=== PATIENT | male | born 1965 | race Caucasian/White ===

== ENCOUNTER 2024-03-16 10:15 | Outpatient (CLI) | payer OTHER, SELFPAY | END 2024-03-16 10:16 | disposition home or self-care (01) | LOC: AMB 03-19 03:30 | PROVIDERS: PCP Internal Medicine; Visit Provider Emergency Medicine | DX: R55 Syncope and collapse (principal); R42 Dizziness and giddiness | CPT/HCPCS: A0425; A0427 ==

== ENCOUNTER 2024-03-16 10:44 | Emergency (ER) | payer OTHER, SELFPAY ==
[2024-03-16 10:50] VITALS: BP 98/77; PULSE 119; RESP 18; TEMP 36.6; O2SAT 97
--- NOTE | 2024-03-16 10:55 | ED.GENADULT ---
HPI - General Adult General Chief complaint: Syncope/Fainted Stated complaint: Syncopal episode Time Seen by Provider: 03/16/24 10:46 History of Present Illness HPI narrative: 58-year-old man presenting to the emergency department with concern of lightheadedness. And recommended for further evaluation in the emergency department. Brought here by ambulance. Was not fully conscious in waiting room and blood pressure readings of 71/49 with a heart rate of 124 glucose of 93. I go to assess Mr. Jurado directly upon arrival in the emergency department. He is calm. Speaking easily breathing easily. His initial blood pressure 98/77. Apparently had been working out again today and has had a number of these episodes beginning this summer usually associated with working out where a feels his heart rate going up and he becomes more lightheaded. Says he feels ?like heat stroke?. Recalls sometimes when his vision got blurry and feeling similar usually after period of prolonged exertion. Wanted particular out in the sun on a fishing trip and dehydrated and after lots of beer he notes. This is not that. For these episodes of more rapid heart rate and feeling lightheaded he has been placed on a ZIO patch and is for 5 days into monitoring on that. He does feel like he is generally prone to feeling lightheaded with exertion historically. He notes that he does not sweat very well and so tends to get overheated easily. He also says that normally he has a low resting heart rate maybe in the 40s or 50s this has the health insurance summary that you are asking about. Did have chest pain or 1 point noting to stress tests in the last few years; apparently these were unremarkable. No chest pain at this time. Is currently feeling a little lightheaded but otherwise without chest pain or shortness of breath. He does also note a history of hypertension. Does recall then with further questioning that he does take a medication for prostate enlargement and symptoms seem to be more pronounced since he has been taking that medication probably started few weeks to months before. Related Data Home Medications ?Medication ?Instructions ?Recorded ?Confirmed amlodipine 10 mg tablet 10 mg PO DAILY 12/17/23 03/16/24 tamsulosin 0.4 mg capsule 0.4 mg PO DAILY 12/17/23 03/16/24 Previous Rx's ?Medication ?Instructions ?Recorded amlodipine 2.5 mg tablet 2.5 mg PO DAILY #30 tabs 03/16/24 Allergies Allergy/AdvReac Type Severity Reaction Status Date / Time No Known Drug Allergies Allergy Verified 12/17/23 15:56 Review of Systems Status of ROS: Reports: 6 or more systems reviewed and unremarkable except as noted in History and below [facility] Social History Smoking Status: Never smoker How often do you have a drink containing alcohol: 2-4 times a month AUDIT-C Alcohol total score: 2 Non-prescribed substance use: denies use Exam Narrative: Exam Narrative: Pleasant. NAD. Tall well-built. Speaking easily. Breathing easily. Lungs are clear. Heart in elevated rate and regular rhythm. Distant. Cranial nerves 2-12 intact. Pupils are equal and brisk. Abdomen is soft nontender. Is well-perfused peripherally. Skin is warm and dry. There is no extremity edema. Const: Vital Signs, click to edit/add: Vital Signs - 24 hr 03/16/24 10:50 03/16/24 11:00 03/16/24 11:32 Temperature 97.8 F Pulse Rate [Right Pulse Oximeter] 119 H Pulse Rate [orthos tatic lying Right Pulse Oximeter] 120 H Pulse Rate [orthos tatic sitting Righ t Pulse Oximeter] 140 H Pulse Rate [orthos tatic standing Rig ht Pulse Oximeter] Respiratory Rate 18 Blood Pressure [Ri ght Upper Arm] 98/77 Blood Pressure [or thostatic lying Ri ght Arm] 96/70 Blood Pressure [or thostatic sitting Right Arm] 59/47 L Blood Pressure [or thostatic standing Right Arm] Pulse Oximetry 97 97 Oxygen Delivery Me thod Room Air 03/16/24 11:45 Temperature Pulse Rate [Right Pulse Oximeter] Pulse Rate [orthos tatic lying Right Pulse Oximeter] 73 Pulse Rate [orthos tatic sitting Righ t Pulse Oximeter] 84 Pulse Rate [orthos tatic standing Rig ht Pulse Oximeter] 104 H Respiratory Rate Blood Pressure [Ri ght Upper Arm] Blood Pressure [or thostatic lying Ri ght Arm] 119/86 Blood Pressure [or thostatic sitting Right Arm] 100/80 Blood Pressure [or thostatic standing Right Arm] 102/83 Pulse Oximetry Oxygen Delivery Me thod Documenting provider has reviewed patient's vital signs: yes Course Vital Signs Vital signs: Initial Vital Signs Temperature 97.8 F 03/16/24 10:50 Temperature Source Temporal Artery Scan 03/16/24 10:50 Pulse Rate 119 H 03/16/24 10:50 Respiratory Rate 18 03/16/24 10:50 Blood Pressure 98/77 03/16/24 10:50 Blood Pressure Mean 84 03/16/24 10:50 Blood Pressure Position Sitting 03/16/24 10:50 Pulse Oximetry 97 03/16/24 10:50 Oxygen Delivery Method Room Air 03/16/24 10:50 Vital Signs Temperature 97.8 F 03/16/24 10:50 Pulse Rate 119 H 03/16/24 10:50 Respiratory Rate 18 03/16/24 10:50 Blood Pressure 98/77 03/16/24 10:50 Pulse Oximetry 97 03/16/24 10:50 Oxygen Delivery Method Room Air 03/16/24 10:50 Temperature 97.8 F 03/16/24 10:50 Pulse Rate 73 03/16/24 11:45 Respiratory Rate 18 03/16/24 10:50 Blood Pressure 119/86 03/16/24 11:45 Pulse Oximetry 97 03/16/24 11:00 Oxygen Delivery Method Room Air 03/16/24 10:50 Medical Decision Making MDM Narrative Medical decision making narrative: Is describing some orthostatic hypotensive symptoms. Certainly could be a tachyarrhythmia contributing. EMS strip seemed to indicate an atrial tachycardia. Might be exacerbated by medications specifically the tamsulosin or even amlodipine I suppose. Uncertain what resting blood pressure is typically though visit for cerumen impaction in the urgent care in December this year had a blood pressure 136/91 and a pulse of 73. Alternatively he is responding appropriately to low resting vagal tone but not enough. Orthostatics are pending. These are grossly positive with blood pressure dropping markedly though with corresponding pulse increase even just sitting. Is infusing 500 mL of normal saline hung by EMS. Reviewed by me initial EKG actually shows a junctional rhythm without apparent P waves. Rate of 113. Observed on color television console monitor. Seems to spontaneously convert into a sinus rhythm. EKG reviewed by me now shows sinus rhythm at a rate of 61. Did discuss all findings with Cardiology. Recommending decreasing dosing of amlodipine at this time pending results of Zio patch were monitoring is currently in progress. Laboratory evaluation is unremarkable. Blood pressure comes up over time in the emergency department to as high as 140s over 80s. Feels improved. Repeat orthostatics are normal. Perhaps some of this lower blood pressures simply related to a near syncopal/syncopal event. See patient discharge plan for further discussion Medical Records Medical records reviewed: Yes I reviewed the patient's medical records Lab Data Lab results reviewed: Yes I reviewed the patient's lab results Labs: Lab Results 03/16/24 03/16/24 03/16/24 Range/Units 10:54 11:08 11:45 Hgb 14.2 (13.5-17.5) gm/dL Sodium 138 (135-149) mmol/L Potassium 4.0 (3.6-5.1) mmol/L Chloride 109 (96-114) mmol/L Carbon Dioxide 21 (20-32) mmol/L Anion Gap 8 (7-15) mEq/L BUN 20 (7-30) mg/dL Creatinine 0.9 (0.5-1.5) mg/dL Estimated GFR 98 ml/min Glucose 106 (60-115) mg/dL Calcium 9.1 (8.4-10.6) mg/dL Troponin I < 0.01 L (0.01-0.04) ng/mL NT-Pro-B Natriuret Pep 94 pg/mL Urine Color Yellow (Yellow) Urine Appearance Clear (Clear) Urine pH 6.5 (5.0-8.5) Ur Specific [place] 1.010 (1.000-1.030) Urine Protein Negative (Negative) Urine Glucose (UA) Negative (Negative) Urine Ketones Negative (Negative) Urine Blood Negative (Negative) Urine Nitrite Negative (Negative) Urine Bilirubin Negative (Negative) Urine Urobilinogen 0.2 (0.2-1.0) Ur Leukocyte Esterase Trace A (Negative) Urine RBC 0-2 (0-2) Urine WBC 0-2 (0-5) Ur Squamous Epith Cells Few (None-Few) Urine Bacteria Few A (None) POC Troponin I 0.01 (0.01-0.04) ng/ml Discharge Plan Discharge Clinical Impression: Arrhythmia, Pre-syncope Patient Disposition: Home w/ Parent or Adult Condition: Improved Additional Instructions: Do stay well-hydrated. As discussed, take it easy over the next couple of weeks until your Zio patch is reviewed and you have Cardiology follow-up. Do go ahead and call and schedule an appointment for just after you turn in that patch. Be seen/return for another larger episode. In the meantime, decrease your amlodipine dosing to 2.5 mg and take this dose in the evening. I am sending in some 2.5 mg tablets if it is too difficult to split. Prescriptions: New amlodipine 2.5 mg tablet 2.5 mg PO DAILY Qty: 30 0RF No Action tamsulosin 0.4 mg capsule 0.4 mg PO DAILY amlodipine 10 mg tablet 10 mg PO DAILY Follow Up/Referrals: Luis Angel Underwood MD [Primary Care Provider] - Stand Alone Forms: Wickr Info Instructions
[2024-03-16 11:00] VITALS: O2SAT 97
[2024-03-16 11:17] LABS: Hemoglobin* 14.2 gm/dL (13.5-17.5)
[2024-03-16 11:23] LABS: Troponin, Point-of-Care* 0.01 ng/ml (0.01-0.04)
[2024-03-16 11:30] LABS: Chloride* 109 mmol/L (96-114); Sodium* 138 mmol/L (135-149)
[2024-03-16 11:32] VITALS: BP 59/47; BP 96/70; PULSE 120; PULSE 140
[2024-03-16 11:33] LABS: Anion Gap 8 mEq/L (7-15); Blood Urea Nitrogen* 20 mg/dL (7-30); Carbon Dioxide* 21 mmol/L (20-32); Creatinine* 0.9 mg/dL (0.5-1.5); Estimated Glomerular Filt Rate 98 ml/min; Glucose* 106 mg/dL (60-115)
[2024-03-16 11:34] LABS: Calcium* 9.1 mg/dL (8.4-10.6)
[2024-03-16 11:45] VITALS: BP 100/80; BP 102/83; BP 119/86; PULSE 104; PULSE 73; PULSE 84
[2024-03-16 11:45] LABS: NT Pro B Type NatriureticPept* 94 pg/mL; Troponin I* < 0.01 ng/mL (0.01-0.04)
[2024-03-16 11:53] LABS: Appearance Urine Clear (Clear); Bilirubin Urine Negative (Negative); Blood Urine Negative (Negative); Color Urine Yellow (Yellow); Glucose Urine Negative (Negative); Ketones Urine Negative (Negative); Leukocyte Esterase Urine Trace (Negative); Nitrite Urine Negative (Negative); Protein Urine Negative (Negative); Urobilinogen Urine 0.2 (0.2-1.0); pH Urine 6.5 (5.0-8.5)
[2024-03-16 12:13] LABS: Bacteria Urine Few; RBC Urine 0-2 (0-2); Squamous Epithelial Cell Urine Few (None-Few); WBC Urine 0-2 (0-5)
== END 2024-03-16 13:38 | disposition home or self-care (01) ==
PROVIDERS: Emergency Provider Family Medicine; PCP Internal Medicine
DX: R55 Syncope and collapse (principal); I49.9 Cardiac arrhythmia, unspecified
CPT/HCPCS: 36415; 80048; 81001; 83880; 84484; 85018; 87086; 93005; 94761; 99284

== ENCOUNTER 2024-05-14 07:50 | Day surgery (SDC) | payer OTHER, SELFPAY ==
[2024-05-14] VITALS (13 sets, daily range): BP systolic 120–156; BP diastolic 76–125; PULSE 40–53; RESP 14–16; TEMP 36.1–36.6; O2SAT 93–97; BMI 29.4
[2024-05-14] MEDS: SODIUM CHLORIDE 0.9 % (FLUSH) 10 ML SYRINGE IVF (08:08)
--- NOTE | 2024-05-14 09:12 | W.PM.H&PU ---
History & Physical Update History & Physical Update H&P Reviewed and patient assessed: No changes noted
[2024-05-14] MEDS: 0.9 % SODIUM CHLORIDE 500 ML 500 ML 100 ML IV (09:32)
[2024-05-14] MEDS: CEFAZOLIN 2 GM INJ IVP (09:42)
[2024-05-14] MEDS: BUPIVACAINE 0.25% 30 ML INJECTION (09:52)
--- NOTE | 2024-05-14 10:35 | W.ANESCHARGE ---
Anesthesia Charges Start Date/Time Anesthesia Start Date: 05/14/24 Anesthesia Start Time: 09:30 Stop Date/Time Anesthesia Stop Date: 05/14/24 Anesthesia Stop Time: 10:36
--- NOTE | 2024-05-14 10:38 | P.GSOP_ITS ---
Operative Note Date of procedure: 05/14/24 Pre-op diagnosis: Umbilical hernia Post-op diagnosis: Same Type of Procedure: Open umbilical hernia repair with placement of mesh Indications: Patient is a 58-year-old male who presented to clinic with a symptomatic umbilical hernia. Different treatment options were reviewed including observation versus surgical intervention. Please see consultation note for full discussion. Risks and benefits of operative intervention were discussed at length with the patient. Risks included but was not limited to: Bleeding, infection, risk of damage to surrounding structures, possible need for additional procedures, risk of recurrence and postoperative complications such as pneumonia, pulmonary emboli or OR. All questions and concerns were addressed with the patient agreeing to proceed. Procedure Description: After discussing the risks and benefits of the procedure, the patient signed informed consent.? The operative site was marked and the patient was brought to the operating room and placed on the operating table in supine position.? Care w as taken to pad the patient's pressure points.?? The patient was then intubated by anesthesia.?? The operative site was then prepped and draped in the usual sterile fashion.? A time-out was then performed. A curvilinear incision was made at the umbilicus. Dissection was carried down into the subcutaneous tissue using cautery. The hernia sac was encountered and carefully dissected down. The hernia sac was entered with evidence of incarcerated preperitoneal fat, which was reduced. The hernia sac was carefully taken off of the umbilical sac and circumferentially dissected free. The fascial edges were then cleared circumferentially. The hernia was 1 cm in size. Patient is very active and a weightlifter, so the decision was made to use a small piece of Ventralex ST hernia mesh. A preperitoneal pocket was created using a combination of blunt dissection and cautery. Hemostasis appeared adequate. Once the posterior fascia was clear, the mesh was placed in the preperitoneal space with care to ensure that it laid flat. This was secured into place using 2 0 Prolene interrupted sutures. The tails were then trimmed and the fascial opening was closed with a running 0 Vicryl. Local anesthetic was injected into the fascia, skin and subcutaneous tissues. The umbilicus was reapproximated to the fascia. The skin was then closed with running absorbable suture. A sterile dressing was then applied. Findings: 1 cm umbilical hernia, repaired with placement of small Ventralex ST mesh. Anesthesia: GETA Surgeon: Christina Mcclendon MD Estimated blood loss (mL): 5 Condition: stable Disposition: PACU
[2024-05-14] MEDS: fentaNYL 100 MCG/2 ML inj 50 MCG IVP (10:50)
--- NOTE | 2024-05-14 11:43 | W.ANESCHARGE ---
Anesthesia Charges Start Date/Time Anesthesia Start Date: 05/14/24 Anesthesia Start Time: 09:30 Stop Date/Time Anesthesia Stop Date: 05/14/24 Anesthesia Stop Time: 10:36
== END 2024-05-14 12:20 | disposition home or self-care (01) ==
PROVIDERS: PCP Internal Medicine; Visit Provider Surgery
PROC: (CPT 49591; principal; 2024-05-14 09:00)
DX: K42.9 Umbilical hernia without obstruction or gangrene (principal)
CPT/HCPCS: 49591; 00830; C1781; J0665; J0690; J1100; J1885; J2250; J2405; J2704; J2710; J3010; J7030

== ENCOUNTER 2024-10-26 08:15 | Outpatient (RCR) | payer OTHER, SELFPAY | END 2025-02-23 23:59 | disposition home or self-care (01) | PROVIDERS: PCP Internal Medicine; Visit Provider Physical Medicine & Rehabilitation | DX: M47.812 Spondylosis without myelopathy or radiculopathy, cervical region (principal); Z51.89 Encounter for other specified aftercare | CPT/HCPCS: 97110; 97140; 97162 ==

== ENCOUNTER 2024-10-27 10:15 | Emergency (ER) | payer OTHER, SELFPAY ==
--- OUTSIDE RECORDS SUMMARY | 2006-05-28 09:25 | XMS_ITS | Continuity of Care Document ---
Author Organization [facility] Address [address] [place] [address] Phone Care Team Providers Care Employment Legal Assistant Name Role Phone Cem Crooks MD Unavailable Unavailable Procedures Procedure Date Comprehensive Eye Exam,New Pt 6 Advance Directives Directive Yes / No Effective Date File Name No Information Encounters Encounter Description Practice Location Reason(s) For Visit Diagnoses Date Provider Providers Copied on Encounter [facility], [facility] [place], [place], [id number], tel:[phone] [facility] No Information Valeriy Priest. [address] [place], [place], [id number]. tel:[phone] [facility], [address] [place] [address], [id number], [place] tel:Specialists On [phone] [facility] eye health evaluation (chief complaint) Astigmatism, regular Valeriy Priest. [address], [place], [id number]. tel:[phone] Family History Family Member Type Diagnosis Age At Onset Problem (finding) Family history of No known significant family history Payers Payer name Insurance type Covered alliance party ID Authoriza tion(s) No Information Social History Type Description Quantity Date Captured Comments Sex Male Smoking Status No Information Chief Complaint And Reason For Visit No Information Reason For Referral Reason For Referral No Information Plan Of Treatment Date Type Action Status Goal TD Vaccine. Due on 06 due History Of Present Illness Encounter Date Complaint History Of Prese nt Illness No Information Functional Status Date Functional Assessmen t No Information Instructions Date Instruction Additional Infor mation 367.21 Myopic Astigm atism, OU s/p Lasik - Discussed S/P Refractive Surgery and Myopic Astigmatism. Reviewed treatment options with the patient. Pt states he is okay with [place] and distance when driving, but has trouble seeing signs and things far away. Options include glasses or CLs for PRN DV wear, or another enhancement. Discussed impending presbyopia and need for bifocals at that time. Pt needs lasik eval to determine corneal thickness. Discussed that pt's ability to read w/out correction would be gone after lasik unless he chose m Related to S/P Refractive Surgery S S/P Refractive Surgery, OU Rel ated to Myopic Astigmatism Assessments Type Assessment Date No Information Patient Care Teams Name Effective Dates (start - stop) Status Members No Information
--- OUTSIDE RECORDS SUMMARY | 2006-05-28 09:25 | XMS_ITS | Continuity of Care Document ---
Author Organization [facility] Address [address] [place] [address] Phone Care Team Providers Care It Senior Software Engineer Java Name Role Phone Cem Crooks MD Unavailable Unavailable Procedures Procedure Date Comprehensive Eye Exam,New Pt 6 Advance Directives Directive Yes / No Effective Date File Name No Information Encounters Encounter Description Practice Location Reason(s) For Visit Diagnoses Date Provider Providers Copied on Encounter [facility], [facility] [place], [place], [id number], tel:[phone] [facility] No Information Valeriy Priest. [address], [place], [id number]. tel:[phone] [facility], [address] [place] [address], [id number], [place] tel:[phone] [facility] eye health evaluation (chief complaint) Astigmatism, regular Valeriy Priest. [address], [place], [id number]. tel:[phone] Family History Family Member Type Diagnosis Age At Onset Problem (finding) Family history of No known significant family history Payers Payer name Insurance type Covered democrat ID Authoriza tion(s) No Information Social History [...]
[2024-10-27] VITALS (7 sets, daily range): BP systolic 125–142; BP diastolic 73–85; PULSE 35–43; RESP 12–18; TEMP 36.3; O2SAT 96–100; BMI 29.8
--- OUTSIDE RECORDS SUMMARY | 2024-10-27 10:18 | XMS_ITS | Continuity of Care Document ---
Author Organization [facility] , [facility] Address [address] [place] [id number] Care Team Providers Care Cloth Grader Supervisor Name Role Phone [facility] Primary Care Provider [facility] Referring Provider Assessment No assessment recorded. Plan of Treatment Reminders Order Date Submit Date Provider Last Modified By Organization Details Last Modified Time Details Appointments None record ed. Lab None record ed. Referral None record ed. Procedures None record ed. Surgeries None record ed. Imaging None record ed. Medication Orders None record ed. Patient TargetsNo targets recorded. Patient InstructionsNo instructions recorded. Reason for Referral None Reported. Problems Name Problem SNOMED Code Status Onset Date Resolution Date Notes Provider Name and Address Organization Details Recorded Time Prostate specific antigen above reference range 290388324 Active 2023 Mathew wylie [facility] 4 13:15:33 Hypertensiv e disorder 90936108 Active 2023 Mathew Esqueda dejan [facility] 4 13:17:24 Polyp of colon 32679528 Active 2023 Mathew Esqueda dejan [facility] 4 13:17:31 Lower urinary tract symptoms due to benign prostatic hypertrophy 4373188003745 1 Active 2023 Mathew wylie [facility] 4 16:17:48 Primary erectile dysfunction 743302129 Active 2023 Mathew Esqueda dejan [facility] 4 16:17:54 Problem Notes None recorded. Procedures Surgical History Date Name Laterality Status Provider Name and Address Organization Details Recorded Time 10/27/19 25 COMPLEX VISIT completed Aidan Newby MD [address] [place] [address],[address], [place], [address], [facility] 10/26/2024 09:09:16 10/27/19 25 Bladder Scan completed Ewapavel Mcdonald [facility] 10/26/2024 14:38:26 10/10/19 25 Blood Draw/MGMT CONSULTANT/PSA RESULTS completed Sharda Puente [facility] 10/09/2024 12:28:24 10/10/19 25 UroCuff completed [facility] 10/09/2024 12:55:21 10/10/19 25 Bladder Scan completed Laura Mendez [facility] 10/09/2024 12:48:11 12/26/19 24 COMPLEX VISIT completed Aidan Newby MD [address] [place] [address],[address], [place], [address], [facility] 12/26/2023 11:14:09 10/16/19 24 Rocephin/Ceftri axone completed Aguilar Jj [facility] 10/16/2023 14:29:38 10/16/19 24 Prostate Biopsy Procedure completed Aidan Newby MD [address] [place] [address],[address], [place], [address], [facility] 10/16/2023 13:28:36 10/16/19 24 URONAV completed Aidan Newby MD [address] [place] [address],[address], [place], [address], [facility] 10/16/2023 13:28:36 07/23/19 24 COMPLEX VISIT completed Aidan Newby MD [address] [place] [address],[address], [place], [address], [facility] 07/23/2023 08:52:33 03/19/20 23 Colonoscopy completed Mathew Baptiste [facility] 07/15/2023 13:17:55 Imaging Results None recorded. Procedure Notes None recorded. Medical Equipment None Reported. Allergies No known drug allergies Medications Name Sig Start Date Stop Date Status Note LastModified by Organization Details LastModified Time ketoconaz ole 2 % shampoo 12/25 completed HN: Patient reports no longer taking Not Available Not Available Not Available prednison e 20 mg tablet 12/25 completed Not Available Not Available Not Available amlodipin e 5 mg tablet TAKE 1 TABLET BY MOUTH EVERY DAY 10/26 completed Not Available Not Available Not Available ceftriaxo ne 1 gram solution for injection Take 1 g by injectio n route. 11/10 completed Not Available Not Available Not Available tamsulosi n 0.4 mg capsule Take 1 capsule every day by oral route. active Not Available Not Available No t Available amlodipin e 10 mg tablet 10mg 1/day active Not Available Not Available No t Available benzonata te 100 mg capsule 07/22 completed Not Available Not Available Not Available levofloxa jami 500 mg tablet Take 1 tablet every 24 hours by oral route as directed . 10/14 completed Not Available Not Available Not Available ketoconaz ole 2 % topical cream 12/25 completed HN: Patient reports no longer taking Not Available Not Available Not Available alfuzosin ER 10 mg tablet,ex tended release 24 hr Take 1 tablet every day by oral route. 2024 active Not Available Not Available Not Avai lable GaviLyte- G 236 gram-22.7 4 gram-6.74 gram-5.86 gram oral solution 07/22 completed Not Available Not Available Not Available Paxlovid 300 mg (150 mg x 2)-100 mg tablets in a dose pack 07/22 completed Not Available Not Available Not Available Vitals Date Recorded Body height Provider Name an d Address Organization Details Last Updated DateTime 10/09/2024 187.96 cm Laura Mendez [place] [facility] [place] [facility] 10/09/2024 12:47:35 Social History Question Answer Notes LastModified by Organizat ion Details LastModified Time Tobacco Smoking Status Never Smoker Not Available Health Note 07/19/2023 10:40:54 What Is Your Level Of Caffeine Consumption? Occasional [email or web address] Information not available 07/19/2023 How Much Tobacco Do You Chew? None [email or web address] Information not available 07/19/2023 What Was The Date Of Your Most Recent Tobacco Screening? 10/09/2024 Information not available 10/09/2024 Have You Ever Been Counseled For Unhealthy Alcohol Use? Yes Information not available 07/23/2023 What Is Your Relationship Status? [email or web address] Information not available 07/19/2023 Are You Sexually Active? Yes [email or web address] Information not available 07/19/2023 Has Tobacco Cessation Counseling Been Provided? No Information not available 07/23/2023 How Many Days In The Past Year Have You Consumed 5 Or More Drinks? 22 [email or web address] Information no t available 07/19/2023 Sex: Unknown Functional Status Question Answer Note LastModified by Organizat ion Details LastModified Time Do you use any illicit or recreational drugs? Yes [email or web address] Information not available 07/19/2023 Do you or have you ever used any other forms of tobacco or nicotine? No Information not available 07/23/2023 What is your level of alcohol consumption? Moderate [email or web address] Information not available 07/19/2023 Do you or have you ever used smokeless tobacco? Never used smokeless tobacco [email or web address] Information not available 07/19/2023 Do you or have you ever used e-cigarettes or vape? Never used electronic cigarettes [email or web address] Information not available 07/19/2023 Mental Status None recorded. Family History Relationship Description Onset Age of this Age Resolved Age Notes LastModified by Organization Details LastModified Time Father Family history of cardiac disorder [email or web address] Not available 2023 10:40:52 Medical History Condition Response High Blood Pressure N Kidney Stones N Depression N Lung Disease N GERD/Acid Reflux N Sexually Transmitted Infection N Diabetes N Bleeding Disorder N Cancer N High Cholesterol N Heart Disease N Immunizations Vaccine Type Date Status Note Provider Nam e and Address Organization Details Recorded Time SARS-COV-2 (COVID-19) vaccine, UNSPECIFIED 02/16/2022 completed Mathew wylie [facility] 07/23/2023 08:45:56 COVID-19, mRNA, LNP-S, PF, 30 mcg/0.3 mL dose 09/03/2020 completed Mathew wylie [facility] 07/23/2023 08:45:55 COVID-19, mRNA, LNP-S, PF, 30 mcg/0.3 mL dose 09/24/2020 completed ARMEN Shi - [facility] 07/23/2023 08:45:56 Past Encounters Encounter ID Performer Location Encounter Start Date Encounter Closed Date Diagnosis/Indication Diagnosis SNOMED-CT Code Diagnosis ICD10 Code Diagnosis Note [id number] MD Micky Cooper_Dwaine [address] [address] 10/09/2024 12:27:00 10/09/2024 12:29:08 Prostate specific antigen above reference range 296854603 R97.20 [id number] MD Micky Cooper_Dwaine [address] [address] 10/09/2024 12:08:58 10/12/2024 09:56:32 Lower urinary tract symptoms due to benign prostatic hypertrophy 6634297862 9101 N40.1 Health Concerns Section Related Observation LastModified by Organization Detai ls LastModified Time None Recorded Concern Status LastModified by Organization Details LastModified Time None Recorded Payers Encounter Date Sequence Insurance Name Policy Number Policy Johnson Covered Member ID Johnson Member ID Guarantor Name 10/09/2024 1 [facility] [id number] Jarad Jurado [id number] Jarad Jurado
--- OUTSIDE RECORDS SUMMARY | 2024-10-27 10:18 | XMS_ITS | Data Portability ---
Author Organization [facility], [facility] Address [address] [place] [address] Care Team Providers Care Sumac Tanner Name Role Phone [facility] Primary Care Provider [facility] ([place]) Referring Provider Assessment Encounter Date Assessment Date Assessment LastModified by Organization Details LastModified Time 11/13/2023 11/13/2023 58 year old male with an elevated prostate specific antigen and benign prostatic hyperplasia with lower urinary tract symptoms Not available 11/13/2023 13:11:11 12/26/2023 12/26/2023 58 year old male with an elevated prostate specific antigen and benign prostatic hyperplasia with lower urinary tract symptoms Not available 12/26/2023 11:12:58 10/26/2024 10/26/2024 59 year old male with an elevated prostate specific antigen and benign prostatic hyperplasia with lower urinary tract symptoms Not available 10/26/2024 09:10:49 Plan of Treatment Reminders Order Date Submit Date Provider Last Modified By Organization Details Last Modified Time Details Appointments None recorded. Lab urinalysis, dipstick 2024 025 [facility], [address], [place], [address], 17:12:32 urinalysis, microscopic 2024 025 [facility], [address], [address], [place], [address], 14:42:58 PSA, total, serum or plasma 2024 025 [facility], [address], [address], [place], [address], 15:00:06 Referral None recorded. Procedures None recorded. Surgeries None recorded. Imaging None recorded. Medication Orders alfuzosin ER 10 mg tablet,exte nded release 24 hr 2024 025 [facility], [address] [place] [address], [id number], 14:43:02 alfuzosin ER 10 mg tablet,exte nded release 24 hr 2023 024 [facility], [address] [place] [address], [id number], 11:15:20 Patient TargetsNo targets recorded. Patient Instructions Encounter Date Encounter Id Patient Instructions Last Modified By Organization Details Last Modified Time 11/13/2023 [id number] Elevated prostat e specific antigen: We covered his MRI findings and biopsy results in detail. We will plan to repeat this in 1 year. Benign prostatic hyperplasia with lower urinary tract symptoms: He has enough symptomatic bother at this point that he would like to start treatment for this. We discussed alpha-rosalia therapy including administration, side effects, risks, and benefits. He would like to try. We will start tamsulosin 0.4 mg daily and check in in 6 weeks to assess for his improvement. Time for visit: 10 min Not available 11/13/2023 13:11:02 12/26/2023 [id number] Elevated prostat e specific antigen: Negative biopsy and MRI. We will repeat his prostate specific antigen in 1 year. Benign prostatic hyperplasia with lower urinary tract symptoms: He has had a good response, but does have light headedness. We will switch to alfuzosin. He will return in 1 year with a Urocuff prior to his visit. Time for visit: 10 min Not available 12/26/2023 11:14:55 10/26/2024 [id number] Elevated prostat e specific antigen: His prostate specific antigen is up, but his exam is stable. With his recent negative biopsy I think the overall risk of missed malignancy is low. We will repeat his prostate specific antigen and exam in 1 year. Benign prostatic hyperplasia with lower urinary tract symptoms: His symptoms are well controlled, he is emptying well, and his peak flow rates are quite high. We will maintain his regimen. Continue alfuzosin ER 10 mg daily. Not available 10/26/2024 14:42:57 Reason for Referral None Reported. Results Created Date Observation Date Name Description Value Unit Range Abnormal Flag Note LastModifiedBy Organization Detail LastModifiedTime 10/16/19 24 10/16/2023 PROST ATE BIOPS Y left lateral base BENIGN PROSTA TIC TISSUE normal Not Available [facility] [employer] [address] [place], [address], 10/20/2023 14:07:25 10/16/19 24 10/16/2023 PROST ATE BIOPS Y left base BENIGN PROSTA TIC TISSUE normal Not Available [facility] [address] [place], [address], 10/20/2023 14:07:25 10/16/19 24 10/16/2023 PROST ATE BIOPS Y left lateral mid BENIGN PROSTA TIC TISSUE normal Not Available [facility] [employer] [address] , [place], [address], 10/20/2023 14:07:25 10/16/19 24 10/16/2023 PROST ATE BIOPS Y left mid BENIGN PROSTA TIC TISSUE normal Not Available [facility] [employer] [address], [place], [address], 10/20/2023 14:07:25 10/16/19 24 10/16/2023 PROST ATE BIOPS Y left lateral apex BENIGN PROSTA TIC TISSUE normal Not Available [facility] [address] [place], [address], 10/20/2023 14:07:25 10/16/19 24 10/16/2023 PROST ATE BIOPS Y left apex BENIGN PROSTA TIC TISSUE normal Not Available [facility] [employer] [address] [place], [address], 10/20/2023 14:07:25 10/16/19 24 10/16/2023 PROST ATE BIOPS Y right base BENIGN PROSTA TIC TISSUE normal Not Available [facility] [address], [place], [address], 10/20/2023 14:07:25 10/16/19 24 10/16/2023 PROST ATE BIOPS Y right lateral base BENIGN PROSTA TIC TISSUE normal Not Available [facility] [place] [address], [place], [address], 10/20/2023 14:07:25 10/16/19 24 10/16/2023 PROST ATE BIOPS Y right mid BENIGN PROSTA TIC TISSUE normal Not Available [facility] [place] [address], [place], [address], 10/20/2023 14:07:25 10/16/19 24 10/16/2023 PROST ATE BIOPS Y right lateral mid BENIGN PROSTA TIC TISSUE normal Not Available [facility] [place] [address], [place], [address], 10/20/2023 14:07:25 10/16/19 24 10/16/2023 PROST ATE BIOPS Y right apex BENIGN PROSTA TIC TISSUE normal Not Available [facility] [place] [address], [place], [address], 10/20/2023 14:07:25 10/16/19 24 10/16/2023 PROST ATE BIOPS Y right lateral apex BENIGN PROSTA TIC TISSUE normal Not Available [facility] [address], [place], [address], 10/20/2023 14:07:25 10/16/19 24 10/16/2023 PROST ATE BIOPS Y R pz BENIGN PROSTA TIC TISSUE normal Not Available [facility] [address], [place], [address], 10/20/2023 14:07:25 10/10/19 25 10/09/2024 PSA, TOTAL -ROCH E PSA, total 6.08 NG/mL 0.00-4 .00 high This resul t is repor james using a new metho dolog y for Total PSA. Previ ous resul ts using the old metho d are not direc tly carli rable . The expec james varia tion is small ( appro ximat emperatriz 1% diffe rence https ://pu bmed. ncbi. nlm.n .go v/346 90279 /), but pleas e consi nahid a new basel ine for the patie nt. This lab resul t is being provi ded to you and your provi nahid at the same time in compl iance with the Centu ry Cures Act. Your provi nahid may not have had time to revie w and make recom menda tions based on the resul t. Pleas e allow up to one week for provi nahid revie w. Not Available [facility] [address], [place], [address], 10/09/2024 15:00:06 Result Notes None recorded. 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 Procedures Surgical History Date Name Laterality Status Provider Name and Address Organization Details Recorded Time 10/27/19 25 COMPLEX VISIT completed Aidan Newby MD [address] [facility], [place], [address], [facility] 10/26/2024 09:09:16 10/27/19 25 Bladder Scan completed Oralia Mcdonald [facility] 10/26/2024 14:38:26 10/10/19 25 Blood Draw/LIEUTENANT BALLISTICS/PSA RESULTS completed Sharda Puente [facility] 10/09/2024 12:28:24 10/10/19 25 UroCuff completed Laura Mendez [facility] 10/09/2024 12:55:21 10/10/19 25 Bladder Scan completed Laura Mendez [facility] 10/09/2024 12:48:11 12/26/19 24 COMPLEX VISIT completed Aidan Newby MD [address] [place] [address],[address], [place], [address], [facility] 12/26/2023 11:14:09 10/16/19 24 Rocephin/Ceftri axone completed Aguilar Jj [facility] 10/16/2023 14:29:38 10/16/19 24 Prostate Biopsy Procedure completed Aidan Newby MD [address] [place] [address],[address], [place], [address], [facility] 10/16/2023 13:28:36 10/16/19 24 URONAV completed Aidan Newby MD [address] [place] [address],[address], [place], [address], [facility] 10/16/2023 13:28:36 07/23/19 24 COMPLEX VISIT completed Aidan Newby MD [address] [place] [address],[address], [place], [address], [facility] 07/23/2023 08:52:33 03/19/20 23 Colonoscopy completed Mathew Baptiste [facility] 07/15/2023 13:17:55 Imaging Results None recorded. Procedure [...] d Address Organization Details Last Updated DateTime 11/13/2023 187.96 cm Mathew Meath [facility] 12:56:42 Date Recorded Body height Provider Name an d Address Organization Details Last Updated DateTime 12/26/2023 187.96 cm Mathew Meath [facility] 10:57:32 Date Recorded Body height Provider Name an d Address Organization Details Last Updated DateTime 10/09/2024 187.96 cm Laura Mendez [facility] 10/09/2024 12:47:35 Date Recorded Body height Body mass index (BMI) Body weight Provider Name and Address Organization Details Last Updated DateTime 10/26/2024 187.96 cm 30 kg/m2 257790.61 g Lynpavel Lightfeather [facility] 10/26/2024 14:36:22 Social History Question Answer Notes LastModified by Organizat ion Details LastModified Time Tobacco Smoking Status Never Smoker Not Available Health Note 07/19/2023 10:40:54 What Is Your Level Of Caffeine Consumption? Occasional [email or web address] Information not available 07/19/2023 How Much Tobacco Do You Chew? None [email or web address] Information not available 07/19/2023 What Was The Date Of Your Most Recent Tobacco Screening? 10/09/2024 [email or web address] Information not available 10/09/2024 Have You Ever [...] available 2023 10:40:52 Medical History Condition Response Diabetes N Sexually Transmitted Infection N Bleeding Disorder N High Blood Pressure N Kidney Stones N Cancer N Depression N Lung Disease N High Cholesterol N GERD/Acid Reflux N Heart Disease N Immunizations Vaccine Type Date Status Note Provider Nam e and Address Organization Details Recorded Time SARS-COV-2 (COVID-19) vaccine, UNSPECIFIED 02/16/2022 completed Mathew Meath null, [facility] 07/23/2023 08:45:56 COVID-19, mRNA, LNP-S, PF, 30 mcg/0.3 mL dose 09/03/2020 completed Mathew Meath null, [facility] 07/23/2023 08:45:55 COVID-19, mRNA, LNP-S, PF, 30 mcg/0.3 mL dose 09/24/2020 completed Mathew Meath null, [facility] 07/23/2023 08:45:56 Past Encounters Encounter ID Performer Location Encounter Start Date Encounter Closed Date Diagnosis/Indication Diagnosis SNOMED-CT Code Diagnosis ICD10 Code Diagnosis Note [id number] Aidan Newby MD [employer] [facility] [address] [place] [address] 07/23/2023 08:43:42 07/23/2023 10:49:23 Prostate specific antigen above reference range 857098221 R97.20 Lower urin trev tract symptoms due to benign prostatic hypertrophy 5107825370 9101 N40.1 Primary er ectile dysfunction 089617033 N52.9 Screening for alcohol abuse 066109873 Z13.39 [id number] MD Kinza Cooper [address] [place] [address] 10/16/2023 13:52:48 10/16/2023 13:56:35 Prostate specific antigen above reference range 308941040 R97.20 [id number] MD Kinza Cooper [address] [place] [address] 10/16/2023 13:50:56 10/16/2023 14:59:00 Prostate specific antigen above reference range 201959195 R97.20 [id number] MD Kinza Cooper [address] [place] [address] 11/13/2023 12:54:32 11/13/2023 13:40:03 Lower urinary tract symptoms due to benign prostatic hypertrophy 4316422236 9101 N40.1 Prostate s pecific antigen above reference range 182386765 R97.20 [id number] [facility] [address] 12/26/2023 10:57:18 12/26/2023 15:00:25 Lower urinary tract symptoms due to benign prostatic hypertrophy 5939032849 9101 N40.1 Prostate s pecific antigen above reference range 103120560 R97.20 [id number] MD Micky CooperWoo [address] [address] 10/09/2024 12:27:00 10/09/2024 12:29:08 Prostate specific antigen above reference range 160736035 R97.20 [id number] [facility] [address] 10/09/2024 12:08:58 10/12/2024 09:56:32 Lower urinary tract symptoms due to benign prostatic hypertrophy 8445073906 9101 N40.1 [id number] MD Micky CooperWo[address] [address] 10/26/2024 14:27:30 10/26/2024 14:43:11 Lower urinary tract symptoms due to benign prostatic hypertrophy 8220437639 9101 N40.1 Prostate s pecific antigen above reference range 205809501 R97.20 Health Concerns Section Related Observation LastModified by Organization Detai ls LastModified Time None Recorded Concern Status LastModified by Organization Details LastModified Time None Recorded Advance Directives Directive None Recorded Payers Insurance Date Sequence Insurance Name Policy Number Policy Johnson Covered Member ID Johnson Member ID Guarantor Name 10/23/2024 1 [facility] ([facility]) [id number] Jarad Jurado [id number] Jarad Jurado Notes Date Note Type Note Provider Name and Address Organization Details Recorded Time 11/13/2023 text/html Prior to conduct ing our telephone visit, the patient was apprised of the risks, benefits and alternatives to telephone visits including but not limited to poor audio quality, interrupted visits due to technological limitations, delays in medical evaluation and treatment due to deficiencies or failures of equipment, failure of security protocols resulting in a breach of privacy of personal medical information and a lack of access to complete medical records resulting in not fully informed. It was not possible for the patient to sign the privacy regulations, HIPAA release and assignment of benefits forms. The patient was given the opportunity to ask questions about these policies and gave verbal acknowledgement and approval of these policies as well as to hold this meeting by telephone. Lastly, the patient agreed to allowing their medication history to be pulled from a national pharmacy database to facilitate and coordinate their care. This is a 58 year old male here for the ongoing management of an elevated prostate specific antigen and benign prostatic hyperplasia with lower urinary tract symptoms. He was noted to have an elevated prostate specific antigen of 4.72 ng/mL (01/08/2023)He underwent an MRI of the prostate with and without intravenous contrast on 09/05/2023 which revealed a PI-RADS 3 lesion in the right peripheral zone.He is status post Uronav prostate biopsy 10/16/2023.Pathology: benign He has been struggling with worsening obstructive symptoms in the last year.He is not currently on medical therapy.He would like to address this today. Aidan Newby MD [address] [place] [address],[address], [place], [address], [facility] 11/13/2023 13:13:31 12/26/2023 text/html Prior to conduct ing our telephone visit, the patient was apprised of the risks, benefits and alternatives to telephone visits including but not limited to poor audio quality, interrupted visits due to technological limitations, delays in medical evaluation and treatment due to deficiencies or failures of equipment, failure of security protocols resulting in a breach of privacy of personal medical information and a lack of access to complete medical records resulting in not fully informed. It was not possible for the patient to sign the privacy regulations, HIPAA release and assignment of benefits forms. The patient was given the opportunity to ask questions about these policies and gave verbal acknowledgement and approval of these policies as well as to hold this meeting by telephone. Lastly, the patient agreed to allowing their medication history to be pulled from a national pharmacy database to facilitate and coordinate their care. This is a 58 year old male here for the ongoing management of an elevated prostate specific antigen and benign prostatic hyperplasia with lower urinary tract symptoms. He was noted to have an elevated prostate specific antigen of 4.72 ng/mL (01/08/2023)He underwent an MRI of the prostate with and without intravenous contrast on 09/05/2023 which revealed a PI-RADS 3 lesion in the right peripheral zone.He is status post Uronav prostate biopsy 10/16/2023.Pathology: benign International Prostate Symptom Score: 9At our last visit he was started on tamsulosin 0.4 mg daily.He has had a good response but does have light headedness. Aidan Newby MD [address] [place] [address],[address], [address], [facility] 12/26/2023 11:15:30 10/26/2024 text/html This is a 59 yea r old male here for the ongoing management of an elevated prostate specific antigen and benign prostatic hyperplasia with lower urinary tract symptoms. He was noted to have an elevated prostate specific antigen of 4.72 ng/mL (01/08/2023)He underwent an MRI of the prostate with and without intravenous contrast on 09/05/2023 which revealed a PI-RADS 3 lesion in the right peripheral zone.He is status post Uronav prostate biopsy 10/16/2023.Pathology: benignHis most recent prostate specific antigen was 6.08 ng/mL (10/09/2024). International Prostate Symptom Score: 10He currently manages his symptoms with alfuzosin ER 10 mg daily.He underwent a Urocuff study on 10/09/2024 which showed a peak flow rate of 36 mL/sec.He denies dysuria or gross hematuria. iAdan Newby MD [address] [place] [address],[address], [place], [address], [facility] 10/26/2024 14:43:06
--- OUTSIDE RECORDS SUMMARY | 2024-10-27 10:18 | XMS_ITS | Continuity of Care Document ---
Author Organization [facility] Address [address] [address] Care Team Providers Care Addiction Therapist Name Role Phone [facility] Primary Care Provider [facility] ([place]) Referring Provider Assessment Encounter Date Assessment Date Assessment LastModified by Organization Details LastModified Time 10/26/2024 10/26/2024 59 year old male with an elevated prostate specific antigen and benign prostatic hyperplasia with lower urinary tract symptoms [facility] Not available 10/26/2024 09:10:49 Plan of Treatment Reminders Order Date Submit Date Provider Last Modified By Organization Details Last Modified Time Details Appointments None recorded. Lab urinalysis, dipstick 2024 025 [facility], [address] [facility], [address], [place], [address], 5 17:12:32 urinalysis, microscopic 2024 025 [facility], [address] [facility], [address], [place], [address], 5 14:42:58 Referral None recorded. Procedures None recorded. Surgeries None recorded. Imaging None recorded. Medication Orders alfuzosin ER 10 mg tablet,exte nded release 24 hr 2024 025 [facility], [address] [place], [address], 5 14:43:02 Patient TargetsNo targets recorded. Patient Instructions Encounter Date Encounter Id Patient Instructions Last Modified By Organization Details Last Modified Time 10/26/2024 [id number] Elevated prostat e specific antigen: His prostate [...] 10/26/2024 14:42:57 Reason for Referral None Reported. Problems Name Problem SNOMED Code Status Onset Date Resolution Date Notes Provider Name and Address Organization Details Recorded Time Prostate specific antigen above reference range 052516484 Active 2023 Mathew wylie [facility] 4 13:15:33 Hypertensiv e disorder 99430526 Active 2023 Mathewrex Esqueda dejan [facility] 4 13:17:24 Polyp of colon 59603688 Active 2023 Mathew Esqueda dejan [facility] 4 13:17:31 Lower urinary tract symptoms due to benign prostatic hypertrophy 5152994390863 1 Active 2023 Mathew Esqueda dejan, [facility] 4 16:17:48 Primary erectile dysfunction 792408555 Active 2023 Mathew Esqueda dejan [facility] 4 16:17:54 Problem Notes None recorded. Procedures Surgical History Date Name Laterality Status Provider Name and Address Organization Details Recorded Time 10/27/19 25 COMPLEX VISIT completed Aidan Newby MD [address] [facility],[address], [place], [address], [facility] 10/26/2024 09:09:16 10/27/19 25 Bladder Scan completed Oralia Mcdonald [facility] 10/26/2024 14:38:26 10/10/19 25 Blood Draw/TALENT ACQUISITION LEAD/PSA RESULTS completed Sharda Puente [facility] 10/09/2024 12:28:24 10/10/19 25 UroCuff completed Laura Mendez [facility] 10/09/2024 12:55:21 10/10/19 25 Bladder Scan completed Laura Mendez [facility] 10/09/2024 12:48:11 12/26/19 24 COMPLEX VISIT completed Aidan Newby MD [address] [place] [address],[address], [place], [address], [facility] 12/26/2023 11:14:09 10/16/19 24 Rocephin/Ceftri axone completed Aguilar Анна [facility] 10/16/2023 14:29:38 10/16/19 24 Prostate Biopsy Procedure completed Aidan Newby MD [address] [place] [address],[address], [place], [address], [facility] 10/16/2023 13:28:36 10/16/19 24 URONAV completed Aidan Newby MD [address] [place] [address],[address], [place], [address], [facility] 10/16/2023 13:28:36 07/23/19 24 COMPLEX VISIT completed Aidan Newby MD [address] [place] [address],[address], [place], [address], [facility] 07/23/2023 08:52:33 03/19/20 23 Colonoscopy completed Mathew Baptiste [facility] 07/15/2023 13:17:55 Imaging Results None recorded. [...] Not Available Vitals Date Recorded Body height Body mass index (BMI) Body weight Provider Name and Address Organization Details Last Updated DateTime 10/26/2024 187.96 cm 30 kg/m2 881761.61 g Oralia Lightfeather [facility] 10/26/2024 14:36:22 Social History Question Answer Notes LastModified by Organizat ion Details LastModified Time Tobacco Smoking Status Never Smoker Not Available Health Note 07/19/2023 10:40:54 What Is Your Level Of Caffeine Consumption? Occasional [email or web address] Information not available 07/19/2023 How Much Tobacco Do You Chew? None [email or web address] Information not available 07/19/2023 What Was The Date Of Your Most Recent Tobacco Screening? 10/09/2024 [email or web address] Information not available 10/09/2024 Have You Ever [...] use any illicit or recreational drugs? Yes [email or web address] Information not available 07/19/2023 Do you or [...] N Lung Disease N GERD/Acid Reflux N Diabetes N Sexually Transmitted Infection N Bleeding Disorder N Cancer N High Cholesterol N Heart Disease N Immunizations Vaccine Type Date Status Note Provider Nam e and Address Organization Details Recorded Time SARS-COV-2 (COVID-19) vaccine, UNSPECIFIED 02/16/2022 completed Mathew wylie [facility] 07/23/2023 08:45:56 COVID-19, mRNA, LNP-S, PF, 30 mcg/0.3 mL dose 09/03/2020 completed Mathew wylie [facility] 07/23/2023 08:45:55 COVID-19, mRNA, LNP-S, PF, 30 mcg/0.3 mL dose 09/24/2020 completed Mathew wylie [facility] 07/23/2023 08:45:56 Past Encounters Encounter ID Performer Location Encounter Start Date Encounter Closed Date Diagnosis/Indication Diagnosis SNOMED-CT Code Diagnosis ICD10 Code Diagnosis Note [id number] Aidan Newby MD [facility] [address] [place] [address] 10/09/2024 12:27:00 10/09/2024 12:29:08 Prostate specific antigen above reference range 445200153 R97.20 [id number] MD Tara Cooperro_[facility] [address] [place] [address],[address] [place] [address] 10/09/2024 12:08:58 10/12/2024 09:56:32 Lower urinary tract symptoms due to benign prostatic hypertrophy 4709753502 9101 N40.1 [id number] MD [facility]icky [facility] [address] [place] [address],[address] [place] [address] 10/26/2024 14:27:30 10/26/2024 14:43:11 Lower urinary tract symptoms due to benign prostatic hypertrophy 2499694639 9101 N40.1 Prostate s pecific antigen above reference range 384128585 R97.20 Health Concerns Section Related Observation LastModified by Organization Detai ls LastModified Time None Recorded Concern Status LastModified by Organization Details LastModified Time None Recorded Payers Encounter Date Sequence Insurance Name Policy Number Policy Johnson Covered Member ID Johnson Member ID Guarantor Name 10/26/2024 1 [facility] ([facility]) [id number] Jarad Jurado [id number] Jarad Jurado Notes Date Note Type Note Provider Name and Address Organization Details Recorded Time 10/26/2024 text/html This is a 59 yea [...] zone.He is status post Uronav prostate biopsy 10/16/2023.Pathology : benignHis most recent prostate specific antigen was 6.08 ng/mL (10/09/2024). International Prostate Symptom Score: 10He currently manages his symptoms with alfuzosin ER 10 mg daily.He underwent a Urocuff study on 10/09/2024 which showed a peak flow rate of 36 mL/sec.He denies dysuria or gross hematuria. Aidan Newby MD [address] [facility],[address], [place], [address], [facility] 10/26/2024 14:43:06
--- OUTSIDE RECORDS SUMMARY | 2024-10-27 10:18 | XMS_ITS | Data Portability ---
Author Organization [facility], [facility] Address [address] [facility] [address] [place] [address] Care Team Providers Care Manager Skilled Name Role Phone [facility] ([place] Primary Care Provider [facility] ([place]) Referring Provider [phone] Assessment Encounter Date Assessment Date Assessment LastModified [...] recorded. Lab urinalysis, dipstick 2024 025 [facility], [address], [address], [place], [address], 17:12:32 urinalysis, microscopic 2024 025 [facility], [address], [address], [place], [address], 14:42:58 PSA, total, serum or plasma 2024 025 [facility], [address], [address], [place], [address], 15:00:06 Referral None recorded. Procedures None recorded. Surgeries None recorded. Imaging None recorded. Medication Orders alfuzosin ER 10 mg tablet,exte nded release 24 hr 2024 025 [facility] [address], [address] [place] [address], [address], 14:43:02 alfuzosin ER 10 mg tablet,exte nded release 24 hr 2023 024 [facility], [address] [place] [address], [address], 11:15:20 Patient TargetsNo targets recorded. Patient Instructions Encounter Date Encounter Id Patient Instructions Last Modified By Organization Details Last Modified Time 11/13/2023 [id number] Elevated prostat e specific antigen: We covered [...] 10 min Not available 11/13/2023 13:11:02 12/26/2023 [id number] Elevated prostat e specific antigen: Negative biopsy [...] 10 min Not available 12/26/2023 11:14:55 10/26/2024 [id number] Elevated prostat e specific antigen: His prostate [...] PROSTA TIC TISSUE normal Not Available [facility] [address] , [place], [address], 10/20/2023 14:07:25 10/16/19 24 10/16/2023 PROST ATE BIOPS Y left base BENIGN PROSTA TIC TISSUE normal Not Available [facility] [address] , [place], [address], 10/20/2023 14:07:25 10/16/19 24 10/16/2023 PROST ATE BIOPS Y left lateral mid BENIGN PROSTA TIC TISSUE normal Not Available [facility] [address] , [place], [address], 10/20/2023 14:07:25 10/16/19 24 10/16/2023 PROST ATE BIOPS Y left mid BENIGN PROSTA TIC TISSUE normal Not Available Ddx [facility] [employer] [address], [place], [address], 10/20/2023 14:07:25 10/16/19 24 10/16/2023 PROST ATE BIOPS Y left lateral apex BENIGN PROSTA TIC TISSUE normal Not Available [facility] [address] [place], [address], 10/20/2023 14:07:25 10/16/19 24 10/16/2023 PROST ATE BIOPS Y left apex BENIGN PROSTA TIC TISSUE normal Not Available [facility] [employer] [address] , [place], [address], 10/20/2023 14:07:25 10/16/19 24 10/16/2023 PROST ATE BIOPS Y right base BENIGN PROSTA TIC TISSUE normal Not Available Ddx [facility] [address], [place], [address], 10/20/2023 14:07:25 10/16/19 24 10/16/2023 PROST ATE BIOPS Y right lateral base BENIGN PROSTA TIC TISSUE normal Not Available Ddx [place] [address], [place], [address], 10/20/2023 14:07:25 10/16/19 24 10/16/2023 PROST ATE BIOPS Y right mid BENIGN PROSTA TIC TISSUE normal Not Available [facility] [place] [address], [place], [address], 10/20/2023 14:07:25 10/16/19 24 10/16/2023 PROST ATE BIOPS Y right lateral mid BENIGN PROSTA TIC TISSUE normal Not Available [facility] [place] [address], [place], [address], 10/20/2023 14:07:25 10/16/19 24 10/16/2023 PROST ATE BIOPS Y right apex BENIGN PROSTA TIC TISSUE normal Not Available [facility] [place] [address], [place], [address], 10/20/2023 14:07:25 10/16/19 24 10/16/2023 PROST ATE BIOPS Y right lateral apex BENIGN PROSTA TIC TISSUE normal Not Available [facility] [address], [place], [address], 10/20/2023 14:07:25 10/16/19 24 10/16/2023 PROST ATE BIOPS Y R pz BENIGN PROSTA TIC TISSUE normal Not Available [facility] [address], [place], [address], 10/20/2023 14:07:25 10/10/19 25 10/09/2024 PSA, TOTAL -ROCH E PSA, total 6.08 NG/mL 0.00-4 .00 high This resul t is repor james using a new metho dolog y for Total PSA. Previ ous resul ts using the old metho d are not direc tly carli rable . The expec jmaes varia tion is small ( appro ximat emperatriz 1% diffe rence https ://pu bmed. ncbi. nlm.n .go v/346 82225 /), but pleas e consi nahid a [...] for provi nahid revie w. Not Available [facility] [address] [facility] [address], [place], [address], 10/09/2024 15:00:06 Result Notes None recorded. 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 Procedures Surgical History Date Name Laterality Status Provider Name and Address Organization Details Recorded Time 10/27/19 25 COMPLEX VISIT completed Aidan Newby MD [address], [place], [address], [facility] 10/26/2024 09:09:16 10/27/19 25 Bladder Scan completed Oralia Mcdonald [facility] 10/26/2024 14:38:26 10/10/19 25 Blood Draw/PUMP ERECTOR/PSA RESULTS completed Sharda Puente [facility] 10/09/2024 12:28:24 10/10/19 25 UroCuff completed Laura Mendez [facility] 10/09/2024 12:55:21 10/10/19 25 Bladder Scan completed Laura Mendez [facility] 10/09/2024 12:48:11 12/26/19 24 COMPLEX VISIT completed Aidan Newby MD [address] [place] [address],[address], [address], [facility] 12/26/2023 11:14:09 10/16/19 24 Rocephin/Ceftri axone completed Aguilar Jj [facility] 10/16/2023 14:29:38 10/16/19 24 Prostate Biopsy Procedure completed Aidan Newby MD [address] [place] [address],[address], [place], [address], [facility] 10/16/2023 13:28:36 10/16/19 24 URONAV completed Aidan Newby MD [address] [place] [address],[address], [place], [address], [facility] 10/16/2023 13:28:36 07/23/19 24 COMPLEX VISIT completed Aidan Newby MD [address] [place] [address],[address], [address], [facility] 07/23/2023 08:52:33 03/19/20 23 Colonoscopy completed Mathew Baptiste [facility] 07/15/2023 13:17:55 Imaging Results None recorded. [...] Updated DateTime 11/13/2023 187.96 cm Mathew Meath [facility] 12:56:42 Date Recorded Body height Provider Name an d Address Organization Details Last Updated DateTime 12/26/2023 187.96 cm Mathew Meath [facility] 10:57:32 Date Recorded Body height Provider Name an d Address Organization Details Last Updated DateTime 10/09/2024 187.96 cm Laura Mendez [facility] 10/09/2024 12:47:35 Date Recorded Body height Body mass index (BMI) Body weight Provider Name and Address Organization Details Last Updated DateTime 10/26/2024 187.96 cm 30 kg/m2 521367.61 g Lynpavel Lightfeather [facility] 10/26/2024 14:36:22 Social History Question Answer Notes LastModified by Organizat ion Details LastModified Time Tobacco Smoking Status Never Smoker Not Available Health Note 07/19/2023 10:40:54 What Is Your Level Of Caffeine Consumption? Occasional [email or web address] Information not available 07/19/2023 How Much Tobacco Do You Chew? None [email or web address] Information not available 07/19/2023 What Was The Date Of Your Most Recent Tobacco Screening? 10/09/2024 [email or web address] Information not available 10/09/2024 Have You Ever [...] vaccine, UNSPECIFIED 02/16/2022 completed Mathew Meath null, [facility] 07/23/2023 08:45:56 COVID-19, mRNA, LNP-S, PF, 30 mcg/0.3 mL dose 09/03/2020 completed Mathew Meath null, [facility] 07/23/2023 08:45:55 COVID-19, mRNA, LNP-S, PF, 30 mcg/0.3 mL dose 09/24/2020 completed Mathew Meath null, [facility] 07/23/2023 08:45:56 Past Encounters Encounter ID Performer Location Encounter Start Date Encounter Closed Date Diagnosis/Indication Diagnosis SNOMED-CT Code Diagnosis ICD10 Code Diagnosis Note [id number] Aidan Newby MD [facility] [address] [place] [address] 07/23/2023 08:43:42 07/23/2023 10:49:23 Prostate specific antigen above reference range 554370824 R97.20 Lower urin trev tract symptoms due to benign prostatic hypertrophy 4323827838 9101 N40.1 Primary er ectile dysfunction 941009904 N52.9 Screening for alcohol abuse 314672527 Z13.39 [id number] MD Kinza Cooper [address] [place] [address] 10/16/2023 13:52:48 10/16/2023 13:56:35 Prostate specific antigen above reference range 737705493 R97.20 [id number] MD Kinza Cooper [address] [place] [address] 10/16/2023 13:50:56 10/16/2023 14:59:00 Prostate specific antigen above reference range 316511472 R97.20 [id number] MD Kinza Cooper [address] [place] [address] 11/13/2023 12:54:32 11/13/2023 13:40:03 Lower urinary tract symptoms due to benign prostatic hypertrophy 1332594742 9101 N40.1 Prostate s pecific antigen above reference range 071274794 R97.20 [id number] [facility] [address] 12/26/2023 10:57:18 12/26/2023 15:00:25 Lower urinary tract symptoms due to benign prostatic hypertrophy 1233726776 9101 N40.1 Prostate s pecific antigen above reference range 567196919 R97.20 [id number] MD Micky CooperWoo [address] [address] 10/09/2024 12:27:00 10/09/2024 12:29:08 Prostate specific antigen above reference range 008634152 R97.20 [id number] [facility] [address] 10/09/2024 12:08:58 10/12/2024 09:56:32 Lower urinary tract symptoms due to benign prostatic hypertrophy 6936551000 9101 N40.1 [id number] MD Micky CooperWo[address] [address] 10/26/2024 14:27:30 10/26/2024 14:43:11 Lower urinary tract symptoms due to benign prostatic hypertrophy 9050350639 9101 N40.1 Prostate s pecific antigen above reference range 341529614 R97.20 Health Concerns Section Related Observation LastModified by Organization Detai ls LastModified Time None Recorded Concern Status LastModified by Organization Details LastModified Time None Recorded Advance Directives Directive None Recorded Payers Insurance Date Sequence Insurance Name Policy Number Policy Johnson Covered Member ID Johnson Member ID Guarantor Name 10/23/2024 1 [facility] ([facility]) [id number] Jarad Jurado [id number] Jarad Jurado Notes Date Note Type Note [...] to address this today. Aidan Newby MD [address] [place] [address],[address], [address], [facility] 11/13/2023 13:13:31 12/26/2023 text/html Prior to [...] does have light headedness. Aidan Newby MD [address] [place] [address],[address], [address], [facility] 12/26/2023 11:15:30 10/26/2024 text/html This is [...] dysuria or gross hematuria. Aidan Newby MD [address] [place] [address],[address], [place], [address], [facility] 10/26/2024 14:43:06
--- OUTSIDE RECORDS SUMMARY | 2024-10-27 10:18 | XMS_ITS | Clinical Summary ---
Author Organization [facility] Address [address] [place] [address] Care Team Providers Care Government Sales Manager Name Role Phone Keshav Ryder Primary Care Provider [phone] Allergies No known active allergies Medications alfuzosin (UROXATRAL) 10 mg Sustained-Relea se tablet Take 10 mg by mouth once daily with a meal. Active medication order composerIndicat ions:YENNIFER (obstructive sleep apnea) 04/02/2024 AHI-9.6; diagnosis obstructive sleep apnea MRD #1 1 unit 4 Active metoprolol succinate (TOPROL XL) 50 mg sustained-relea se tabletIndicatio ns:PAF (paroxysmal atrial fibrillation) (HC) Take 1 Tablet (50 mg) by mouth once daily. 31 Tablet 11 4 Active amLODIPine (NORVASC) 10 mg tabletIndicatio ns:HTN (hypertension) Take 1 Tablet (10 mg) by mouth once daily. Please call [phone] 2 months in advance to schedule an office visit due in Apr 2025 with imaging 90 Tablet 2 5 Active Active Problems Problem Noted Date Diagnosed Date Spondylosis of cervical spine 05/11/2024 Lower urinary tract symptoms due to benign prostatic hyperplasia 10/04/2023 Primary erectile dysfunction 10/04/2023 High prostate specific antigen (PSA) 07/14/2023 Polyp of colon 03/22/2023 Overview (03/22/2023): Colonoscopy 03/2023 TA, repeat in 5 years Hypertensive disorder 03/12/2022 Encounters Date Type Department Care Team Description 10/09/2024 Orders Only [facility] Scanner 1 scan: (1-Ord) [facility] UR[facility] , 10/09/2024 10/09/2024 Orders Only [facility] Scanner 1 scan: (1-Ord) [facility], 10/09/2024 08/28/2024 3:30 PM CDT Ancillary Procedure [facility] [address] [place] [address] 08/27/2024 Travel 08/25/2024 Transcribe Orders Customer Experience [facility] [phone] James Ace MD 08/06/2024 Telephone [facility] [address] [place] [address] Silvino Aranda MD Results 08/03/2024 7:15 AM BOAT DOCK OPERATOR Ancillary Procedure [facility] [address] [place] [address] 08/03/2024 Travel from Last 3 Months Immunizations Immunization Administration Dates Next Due COVID-19 vaccine ([employer] 30mcg/0.3mL) ADRIÁN Coleman 02/16/2022 Family History Medical History Relation Name Comments Heart attack Father 60s Relation Name Status Comments Father Social History Tobacco Use Types Packs/Day Years Used Date Smoking Tobacco: Never Smokeless Tobacco: Never Tobacco Cessation:Counseling Given: Yes Alcohol Use Standard Drinks/Week Comments Yes 0 (1 standard drink = 0.6 oz pure alcohol) wine OR beer, no more than 2 per day PHQ-2 Answer Date Recorded PHQ-2 TOTAL SCORE 2 02/20/2024 Social Connections Answer Date Recorded Do you often feel lonely or isolated from those around you? 0 02/20/2024 Alcohol Use Answer Date Recorded How often do you have a drink containing alcohol ? 4 12/15/2021 How many drinks containing a lcohol do you have on a typical day when you are drinking? 0 12/15/2021 How often do you have five or more drinks on one occasion? 0 12/15/2021 Financial Resource Strain Answer Date R ecorded Difficulty of Paying Living Expenses 3 02/20/2024 Difficulty of Paying Living Expenses Not on file 02/20/2024 Food Insecurity Answer Date Recorded Do you worry your food will run out before you are able to buy more? 1 02/20/2024 Transportation Needs Answer Date Record ed Does lack of transportation keep you from medica l appointments? 1 02/20/2024 Does lack of transportation keep you from work, meetings or getting things that you need? 1 02/20/2024 Housing Stability Answer Date Recorded What is your housing situation today? 1 02/20/2024 Utilities Answer Date Recorded Do you have trouble paying f or utilities (for example, heat, electricity, water, phone)? 1 02/20/2024 Sex and Gender Information Value Date Recorded Sex Assigned at Not on file Legal Sex Male 2:07 PM CDT Gender Identity Not on file Sexual Orientation Not on file Obstetrics History Last Filed Vital Signs Vital Sign Reading Time Taken Comments Blood Pressure 164/97 07/23/2024 1:50 PM BOAT DOCK OPERATOR did not take rx's last night Pulse 58 07/23/2024 1:50 PM BOAT DOCK OPERATOR Temperature 36.4 C (97.6 F) 07/23/2024 1:50 PM BOAT DOCK OPERATOR Respiratory Rate 14 03/19/2023 3:47 PM CDT Oxygen Saturation 97% 07/23/2024 1:5 0 PM BOAT DOCK OPERATOR Inhaled Oxygen Concentration - - Weight 108.5 kg (239 lb 4.8 oz) 07/23/2024 1:50 PM BOAT DOCK OPERATOR Height 186.4 cm (6' 1.39) 04/27/2024 8 :38 AM BOAT DOCK OPERATOR Body Mass Index 31.24 04/27/2024 8:38 AM BOAT DOCK OPERATOR Plan of Treatment Health Maintenance Due Date Last Done Comments Tdap 08/09/1975 Pneumococcal series for age 50+ (1 of 2 - PCV) 08/09/1983 Tetanus booster 1984 Zoster (shingles) series for age 50+ (1 of 2) 2014 COVID-19 vaccine series ( season) 2024 02/16/2022, 09/24/2020, 09/03/2020 RSV vaccine for adults or (1 - Risk 60-74 years 1-dose series) 2024 Influenza Vaccine (Season Ended) 2025 Depression screening for age 12+ 02/19/2025 02/20/20 24 BMI (ht and wt on same day) for age 18+ 04/27/2025 04/27/2024, 03/12/2024, 02/20/2024, Additional history exists Colonoscopy through age 75 03/19/202803/19, 03/19/2023, 03/19/2023, Additional history exists Lipids for age 45-75 02/19/2029 02/20/2024, 01/09/20 23 HIV for age 15-65 Completed 01/08/2023 Hepatitis C screening for ag e 18-79 Completed 01/08/2023 Procedures Procedure Name Priority Date/Time Associated Diagnosis Comments SCAN-OPERATIVE/PROC EDURE REPORT 10/09/2024 12:00 AM CDT SCAN-DIAGNOSTIC REPORT 10/09/2024 12:[address] SPINE CERVICAL WO FLACO 08/28/2024 3:39 PM CDT Cervical radiculitis MR SPINE CERVICAL WO Routine 08/03/2024 10:10 AM BOAT DOCK OPERATOR Spondylosis of cervical spine Neck ankylosis Facet arthritis of cervical region LIPID PANEL W REFLEX MEASURED LDL Routine 02/20/2024 8:35 AM CDT Annual physical exam COLONOSCOPY SCREENING Routine 03/19/2023 2:56 PM CDT Personal history of colonic polyps LC HIV-1/O/2, 4TH GENERATION Routine 01/08/2023 11:00 AM CDT Screening for HIV (human immunodeficiency virus) LC HCV ANTIBODY RFX TO QUANT PCR Routine 01/08/2023 11:00 AM CDT Need for hepatitis C screening test from Last 3 Months or Most Recently Relevant to Health Maintenance Results * SCAN-OPERATIVE/PROCEDURE REPORT (10/09/2024 12:00 AM CDT) us Scanner OTHER Final Result * SCAN-DIAGNOSTIC REPORT (10/09/2024 12:00 AM CDT) us Scanner OTHER Final Result * CT SPINE CERVICAL WO (08/28/2024 3:39 PM CDT) Anatomical Region Laterality Modality CERVICAL SPINE, NECK, Spine Comp uted Tomography 08/28/2024 4:30 PM CDT Narrative 08/28/2024 4:30 PM CDT For Patients: As a result of the Cures Act, medical imaging exams and procedure reports are released immediately into your electronic medical record. You may view this report before your referring provider. If you have questions, please contact your health care provider. Indication: Cervical radiculitis. Technique: Noncontrast CT of the cervical spine with multiplanar reconstruction utilizing bone and soft tissue algorithms. Comparison: Correlated with MR cervical spine dated 08/03/2024. Findings: No acute fracture or traumatic subluxation. No lytic or blastic lesion. Bulky anterior osteophytes from C3-C7 with C4-C6 interbody ankylosis. Normal cervical vertebral alignment and stature. Multilevel interbody height loss with vacuum disc phenomenon at C6-C7. C2-C3: Moderate right facet joint arthrosis. No significant spinal canal or neural foraminal stenosis. C3-C4: No significant spinal canal stenosis. Mild-moderate right and mild left neural foraminal narrowing associated with uncovertebral and facet joint arthrosis. C4-C5: Posterior endplate osteophytic ridging. Mild facet joint and uncovertebral hypertrophy. No significant spinal canal or neural foraminal stenosis. C5-C6: Posterior endplate osteophytic ridging. Mild uncovertebral and facet joint arthrosis. No significant spinal canal or neural foraminal stenosis. C6-C7: Posterior endplate osteophytic ridging and shallow symmetric disc bulge. Mild uncovertebral arthrosis. No significant spinal canal stenosis or right neural foraminal narrowing. Mild-moderate left neural foraminal narrowing. C7-T1: Mild facet joint arthrosis. No significant spinal canal or neural foraminal stenosis. Impression: 1. No acute fracture or traumatic subluxation. 2. Diffuse idiopathic skeletal hyperostosis with C4-C6 interbody ankylosis. 3. Mild-moderate neural foraminal narrowing on the right at C3-C4 and left at C6-C7. Please note that all CT scans at this facility use dose modulation, iterative reconstruction, and/or weight-based dosing when appropriate to reduce radiation dose to as low as reasonably achievable. Dictated by Michael James MD @ 08/28/2024 4:30:41 PM (Electronically Signed) Procedure Note Kang James MD - 08/28/2024 For Patients: As a result of the Cures Act, medical imagingexams and procedure reports are released immediately into your electronicmedical record. You may view this report before your referring provider.If you have questions, please contact your health care provider. Indication: Cervical radiculitis. Technique: Noncontrast CT of the cervical spine with multiplanar reconstructionutilizing bone and soft tissue algorithms. Comparison: Correlated with MR cervical spine dated 08/03/2024. Findings: No acute fracture or traumatic subluxation. No lytic or blastic lesion.Bulky anterior osteophytes from C3-C7 with C4-C6 interbody ankylosis.Normal cervical vertebral alignment and stature. Multilevel interbodyheight loss with vacuum disc phenomenon at C6-C7. C2-C3: Moderate right facet joint arthrosis. No significant spinal canalor neural foraminal stenosis. C3-C4: No significant spinal canal stenosis. Mild-moderate right and mildleft neural foraminal narrowing associated with uncovertebral and facetjoint arthrosis. C4-C5: Posterior endplate osteophytic ridging. Mild facet joint anduncovertebral hypertrophy. No significant spinal canal or neural foraminalstenosis. C5-C6: Posterior endplate osteophytic ridging. Mild uncovertebral andfacet joint arthrosis. No significant spinal canal or neural foraminalstenosis. C6-C7: Posterior endplate osteophytic ridging and shallow symmetric discbulge. Mild uncovertebral arthrosis. No significant spinal canal stenosisor right neural foraminal narrowing. Mild-moderate left neural foraminalnarrowing. C7-T1: Mild facet joint arthrosis. No significant spinal canal or neuralforaminal stenosis. Impression: 1. No acute fracture or traumatic subluxation. 2. Diffuse idiopathic skeletal hyperostosis with C4-C6 interbodyankylosis. 3. Mild-moderate neural foraminal narrowing on the right at C3-C4 and leftat C6- C7. Please note that all CT scans at this facility use dose modulation,iterative reconstruction, and/or weight-based dosing when appropriate toreduce radiation dose to as low as reasonably achievable. Dictated by Michael James MD @ 08/28/2024 4:30:41 PM (Electronically Signed) us James Ace MD CT Final Re sult * MR SPINE CERVICAL WO (08/03/2024 10:10 AM BOAT DOCK OPERATOR) Anatomical Region Laterality Modality Spine, CERVICAL SPINE Magnetic R esonance 08/03/2024 1:07 PM BOAT DOCK OPERATOR Impressions 08/03/2024 1:07 PM BOAT DOCK OPERATOR 1. Normal alignment. No fractures. 2. Mild marrow edema of the articular processes of the right C2-3 facet joint which may be secondary to stress reaction or inflammation. 3. Normal cord signal. 4. At C3-4, mild narrowing of the spinal canal and bilateral neural foramina 5. At C6-7, mild narrowing of the spinal canal and left neural foramen Dictated by Gerry James MD @ 08/03/2024 1:07:31 PM (Electronically Signed) Narrative 08/03/2024 1:07 PM BOAT DOCK OPERATOR For Patients: As a result of the Cures Act, medical imaging exams and procedure reports are released immediately into your electronic medical record. You may view this report before your referring provider. If you have questions, please contact your health care provider. INDICATION: Neck pain. Ankylosis. COMPARISON: None. TECHNIQUE: Sagittal T1, T2, and STIR sequences. Axial T2/gradient sequences. FINDINGS: Normal vertebral body and facet alignment. No fractures. No vertebral body loss of height. No spondylolisthesis. No ligamentous injury. No suspicious osseous lesions. Marrow edema of the articular processes of the right C2-3 facet joint which may be secondary to stress reaction or inflammation from facet arthritis. Fusion of the ventral bridging osteophytes at C3-4 through C6-7. Normal cord signal. No intradural mass or lesion. C1-2: No spinal canal narrowing. C2-3: No spinal canal or neural foraminal narrowing. C3-4: Disc degeneration and loss disc height. Broad-based disc osteophyte complex. Modic type 2 endplate changes. Mild narrowing of spinal canal. Mild narrowing of the bilateral foramina. C4-5: Disc degeneration. Shallow right paracentral disc protrusion measures approximately 3 mm in short axis. No narrowing of the spinal canal. No neural foraminal narrowing. C5-6: No spinal canal neural foraminal narrowing. C6-7: Disc degeneration and broad-based disc osteophyte complex. Mild narrowing of spinal canal. Mild narrowing of the left neural foramen. No narrowing of the right neural foramen. C7-T1: Disc degeneration. No narrowing of spinal canal. No neural foraminal narrowing. No spinal canal or neural foraminal narrowing in the visualized upper thoracic spine. Procedure Note Gerry James MD, PhD - 08/03/2024 For Patients: As a result of the Cures Act, medical imagingexams and procedure reports are released immediately into your electronicmedical record. You may view this report before your referring provider.If you have questions, please contact your health care provider. INDICATION: Neck pain. Ankylosis. COMPARISON: None. TECHNIQUE: Sagittal T1, T2, and STIR sequences. Axial T2/gradient sequences. FINDINGS: Normal vertebral body and facet alignment. No fractures. No vertebral bodyloss of height. No spondylolisthesis. No ligamentous injury. No suspiciousosseous lesions. Marrow edema of the articular processes of the right C2-3 facet jointwhich may be secondary to stress reaction or inflammation from facetarthritis. Fusion of the ventral bridging osteophytes at C3-4 through C6-7. Normal cord signal. No intradural mass or lesion. C1-2: No spinal canal narrowing. C2-3: No spinal canal or neural foraminal narrowing. C3-4: Disc degeneration and loss disc height. Broad-based disc osteophytecomplex. Modic type 2 endplate changes. Mild narrowing of spinal canal.Mild narrowing of the bilateral foramina. C4-5: Disc degeneration. Shallow right paracentral disc protrusionmeasures approximately 3 mm in short axis. No narrowing of the spinalcanal. No neural foraminal narrowing. C5-6: No spinal canal neural foraminal narrowing. C6-7: Disc degeneration and broad-based disc osteophyte complex. Mildnarrowing of spinal canal. Mild narrowing of the left neural foramen. Nonarrowing of the right neural foramen. C7-T1: Disc degeneration. No narrowing of spinal canal. No neuralforaminal narrowing. No spinal canal or neural foraminal narrowing in the visualized upperthoracic spine. IMPRESSION: 1. Normal alignment. No fractures. 2. Mild marrow edema of the articular processes of the right C2-3 facetjoint which may be secondary to stress reaction or inflammation. 3. Normal cord signal. 4. At C3-4, mild narrowing of the spinal canal and bilateral neuralforamina 5. At C6-7, mild narrowing of the spinal canal and left neural foramen Dictated by Gerry James MD @ 08/03/2024 1:07:31 PM (Electronically Signed) us Silvino Aranda MD MR Final Resu lt * (ABNORMAL) LIPID PANEL W REFLEX MEASURED LDL (02/20/2024 8:35 AM CDT) CHOLESTEROL,TOTAL 200(H) 100 - 199 mg/dL 02/20/2024 6:25 PM CDT [facility] Comment: Cholesterol, Total Reference Ranges Desirable <200 mg/dL Borderline 200-239 mg/dL High >=240 mg/dL TRIGLYCERIDES 137 <150 mg/dL 02/20/2024 6:25 PM CDT [facility] HDL CHOLESTEROL 49 >40 mg/dL 6:25 PM CDT [facility] NON-HDL CHOLESTEROL 151(H) <145 mg/dl 02/20/2024 6:25 PM CDT [facility] CHOL/HDL RATIO 4.08 <4.50 02/20/2024 6:25 PM CDT [facility] LDL CHOLESTEROL 124 <=130 mg/dL 02/20/2024 6:25 PM CDT [facility] VLDL CHOLESTEROL 27 <=30 mg/dL 02/20/2024 6:25 PM CDT [facility] PROVIDER ORDERED STATUS RANDOM 02/20/2024 6:25 PM CDT [facility] Blood BLOOD SPECIMEN / Unknown Venipuncture / Unknown 02/20/2024 8:35 AM CDT 02/20/2024 8:35 AM CDT Keshav Ryder DO CHEMISTRY Final Result [facility] [address] [place] [address], [place] * COLONOSCOPY (03/19/2023 3:00 PM CDT) 03/19/2023 3:00 PM CDT Narrative Transcriptions Angel Sin MD - 03/19/2023 3:34 PM CDT Patient Name: Jarad Jurado Procedure Date: 03/19/2023 Gender: Male Date of : 1965 Admit Type: Outpatient Procedure: Colonoscopy Proceduralist: Angel Sin MD , Aye Crooks (Nurse), Mely Murguia RN (Nurse) Referring MD: Keshav Ryder Indications/Pre-Op Diagnosis: High risk colon cancer surveillance:Personal history of adenoma (10 mm or greater insize), High risk colon cancer surveillance:Personal history of sessile serrated colon polyp(less than 10 mm in size) with no dysplasia, Last colonoscopy: March 2020 Medications: Fentanyl 100 micrograms IV, Midazolam 4 mgIV, The level of sedation administered wasmoderate Procedure Description: The patient had risks, benefits and alternatives explained to andgave informed consent. The patient had a stable cardiopulmonary status and judged an adequate candidate for conscious sedation. The endoscope -[id number] was passed through the anus andadvanced to the cecum, identified by appendiceal orifice and ileocecal valve.The colonoscopy was performed without difficulty. The patient toleratedthe procedure well. The quality of the bowel preparation was good. The ileocecal valve, appendiceal orifice, and rectum were photographed. Complications: No immediate complications. Estimated Blood Loss & Specimen: Estimated blood loss: none. Specimen collected - Yes and sent to Laboratory Findings: The perianal and digital rectal examinations were normal. Two sessile polyps were found in the cecum. The polyps were 1 to 2 mmin size. These polyps were removed with a cold biopsy forceps. Resection and retrieval were complete. A 3 mm polyp was found in the rectum. The polyp was sessile. Thepolyp was removed with a cold biopsy forceps. Resection and retrieval were complete. The exam was otherwise without abnormality. Impressions/Post-Op Diagnosis: - Two 1 to 2 mm polyps in the cecum, removed with a cold biopsyforceps. Resected and retrieved. - One 3 mm polyp in the rectum, removed with a cold biopsy forceps. Resected and retrieved. - The examination was otherwise normal. Recommendation: - Patient has a contact number available for emergencies. The signsand symptoms of potential delayed complications were discussed with the patient. Return to normal activities tomorrow. Written discharge instructions were provided to the patient. - Resume previous diet. - Continue present medications. - Await pathology results. - Repeat colonoscopy in 5 years for surveillance. Moderate Sedation: A time out was performed before the procedure. Moderate (conscious) sedation was administered by the endoscopy nurse and supervised bythe endoscopist. The following parameters were monitored: oxygensaturation, heart rate, blood pressure, EKG, CO2, respiratory rate, adequacy of pulmonary ventilation and reponse to care. Please refer to the patient's medical record flowsheets and nursing notes for moderate sedation details. Total physician intraservice time was *15minutes. Angel Sin MD 03/19/2023 3:34:19 PM This report has been signed electronically. Note Initiated On: 03/19/2023 3:00 PM Procedure Code(s): --- Professional --- 69122, Colonoscopy, flexible; with biopsy, single or multiple Diagnosis Code(s): --- Professional --- D12.0, Benign neoplasm of cecum D12.8, Benign neoplasm of rectum Z86.010, Personal history of colonicpolyps CPT copyright 2021 [employer]. All rights reserved. The codes documented in this report are preliminary and upon master welder reviewmay be revised to meet current compliance requirements. Scope In: 3:17:24 PM Scope Withdrawal Time 0 hours 9 minutes 47 seconds Scope Out: 3:29:34 PM Angel Sin MD PROCEDURE ORD Final Res ult * LC HCV ANTIBODY RFX TO QUANT PCR (01/08/2023 11:00 AM CDT) Pathologist [facility] HCV Ab Non Reactive Non Reactive 01/11/2023 3:08 AM CDT [facility]) Blood BLOOD SPECIMEN / Unknown Venipuncture / Unknown 01/08/2023 11:00 AM CDT 01/08/2023 11:02 AM CDT Narrative [facility] - 01/11/2023 3:08 AM CDT Performed at: [address] [place] [id number] Logistics Intern: Calvin Erickson MD, Phone: [phone] Keshav Ryder DO LABORATORY Final Result [facility] ([facility]) [address] [place] [id number], * LC HIV-1/O/2, 4TH GENERATION (01/08/2023 11:00 AM CDT) Pathologist [facility] HIV Scr 4th Gen Non Reactive Non Reactive 01/11/2023 12:07 AM CDT [facility] ([facility]) Comment: HIV Negative HIV-1/HIV-2 antibodies and HIV-1 p24 antigen were NOT detected. There is no laboratory evidence of HIV infection. Blood BLOOD SPECIMEN / Unknown Venipuncture / Unknown 01/08/2023 11:00 AM CDT 01/08/2023 11:02 AM CDT Narrative [facility] ([facility]) - 01/11/2023 12:07 AM CDT Performed at: 01 - [address] [id number] Logistics Intern: Calvin Erickson MD, Phone: [phone] us Keshav Ryder DO LABORATORY Final Result [facility] [address] [place] [address], from Last 3 Months or Most Recently Relevant to Health Maintenance Insurance [facility] Care Teams Government Sales Manager Relationship Specialty Start Date End Date Keshav Ryder [place] [address] [place] [address] PCP - General Family Practice 04/03/24
--- OUTSIDE RECORDS SUMMARY | 2024-10-27 10:18 | XMS_ITS | Continuity of Care Document ---
Author Organization [facility], [place] Address [address] [facility] [address] [place] [address] Care Team Providers Care Senior Process Control Tech Name Role Phone [facility] Primary Care Provider [facility] Referring Provider Assessment No assessment recorded. Plan of Treatment Reminders Order Date Submit Date Provider Last Modified By Organization Details Last Modified Time Details Appointments None recorded . Lab PSA, total, serum or plasma 025 10/10/19 25 [facility], [address] [place] [address], [facility] [address], [place], [address], 5 15:00:06 Referral None recorded . Procedures None recorded . Surgeries None recorded . Imaging None recorded . Medication Orders None recorded . Patient TargetsNo targets recorded. Patient InstructionsNo instructions recorded. Reason for Referral None Reported. Problems Name Problem SNOMED Code Status Onset Date Resolution Date Notes Provider Name and Address Organization Details Recorded Time Prostate specific antigen above reference range 591988383 Active 2023 Mathew wylie [facility] 4 13:15:33 Hypertensiv e disorder 86504497 Active 2023 Mathew Esquedah dejan [facility] 4 13:17:24 Polyp of colon 56605569 Active 2023 Mathew wylie [facility] 4 13:17:31 Lower urinary tract symptoms due to benign prostatic hypertrophy 6558876754227 1 Active 2023 Mathew wylie [facility] 4 16:17:48 Primary erectile dysfunction 884274694 Active 2023 Mathew Baptiste null, [facility] 16:17:54 Problem Notes None recorded. Procedures Surgical History Date Name Laterality Status Provider Name and Address Organization Details Recorded Time 10/27/19 25 COMPLEX VISIT completed Aidan Newby MD [address] [place] [address],[address], [place], [address], [facility] 10/26/2024 09:09:16 10/27/19 25 Bladder Scan completed Oralia Mcdonald [facility] 10/26/2024 14:38:26 10/10/19 25 Blood Draw/ASSISTANT OPERATOR/PSA RESULTS completed Sharda Puente [facility] 10/09/2024 12:28:24 10/10/19 25 UroCuff completed Laura Mendez [facility] 10/09/2024 12:55:21 10/10/19 25 Bladder Scan completed Laura Mendez [facility] 10/09/2024 12:48:11 12/26/19 24 COMPLEX VISIT completed Aidan Newby MD [address] [place] [address],[address], [place], [address], [facility] 12/26/2023 11:14:09 10/16/19 24 Rocephin/Ceftri axone completed Aguilar Jj [facility] 10/16/2023 14:29:38 10/16/19 24 Prostate Biopsy Procedure completed Aidan Newby MD [address] [place] [address],[address], [place], [address], [facility] 10/16/2023 13:28:36 10/16/19 24 URONAV completed Aidan Newby MD [address] [place] [address],[address], [place], [address], [facility] 10/16/2023 13:28:36 07/23/19 24 COMPLEX VISIT completed Aidan Newby MD [address] [place] [address],[address], [place], [address], [facility] 07/23/2023 08:52:33 03/19/20 23 Colonoscopy completed Mathew Baptiste [facility] 07/15/2023 13:17:55 Imaging Results None recorded. Procedure [...] Updated DateTime 10/09/2024 187.96 cm Laura Mendez [place] [facility] [place] [facility] 10/09/2024 12:47:35 Social History Question [...] Pressure N Kidney Stones N Depression N Sexually Transmitted Infection N Cancer N Bleeding Disorder N Lung Disease N GERD/Acid Reflux N High Cholesterol N Diabetes N Heart Disease N Immunizations Vaccine Type Date Status Note Provider Nam e and Address Organization Details Recorded Time SARS-COV-2 (COVID-19) vaccine, UNSPECIFIED 02/16/2022 [facility] [place] [facility] [place] [facility] 07/23/2023 08:45:56 COVID-19, mRNA, LNP-S, PF, 30 mcg/0.3 mL dose 09/03/2020 completed Mathew Meath null, [facility] 07/23/2023 08:45:55 COVID-19, mRNA, LNP-S, PF, 30 mcg/0.3 mL dose 09/24/2020 completed Mathew Meath null, [facility] 07/23/2023 08:45:56 Past Encounters Encounter ID Performer Location Encounter Start Date Encounter Closed Date Diagnosis/Indication Diagnosis SNOMED-CT Code Diagnosis ICD10 Code Diagnosis Note [id number] [facility] [address] 10/09/2024 12:27:00 10/09/2024 12:29:08 Prostate specific antigen above reference range 382601972 R97.20 [id number] MD Micky CooperBlooBoxjarad [address] [address] 10/09/2024 12:08:58 10/12/2024 09:56:32 Lower urinary tract symptoms due to benign prostatic hypertrophy [id number] 9101 N40.1 Health Concerns Section Related Observation LastModified by Organization Detai ls LastModified Time None Recorded Concern Status LastModified by Organization Details LastModified Time None Recorded Payers Encounter Date Sequence Insurance Name Policy Number Policy Johnson Covered Member ID Johnson Member ID Guarantor Name 10/09/2024 1 [facility] ([facility] [id number] Jarad Jurado [id number] Jarad Jurado
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
[2024-10-27] MEDS: MORPHINE 4 MG/ML INJ IVP (11:40)
--- OUTSIDE RECORDS SUMMARY | 2024-10-27 11:42 | XMS_ITS | Clinical Summary ---
Author Organization [facility] Address [address] [place] [id number] Care Team Providers Care Instructor Adjunct Pharmacy Technician Name Role Phone Keshav Ryder Primary Care Provider [phone] Allergies No known active allergies Medications alfuzosin [...] mg) by mouth once daily. Please call [phone] 2 months in advance to schedule an [...] Department Care Team Description 10/09/2024 Orders Only [facility] Scanner 1 scan: (1-Ord) [facility], UROCUFF , 10/09/2024 10/09/2024 Orders Only [facility] Scanner 1 scan: (1-Ord) [facility], UROCUFF, 10/09/2024 08/28/2024 3:30 PM CDT Ancillary Procedure [address] [place] [address] 08/27/2024 Travel 08/25/2024 Transcribe Orders Customer Experience [facility] [phone] James Ace MD 08/06/2024 Telephone [address] [place] [address] Silvino Aranda MD Results 08/03/2024 7:15 AM [employer] Ancillary Procedure [address] [place] [address] 08/03/2024 Travel from Last 3 Months Immunizations Immunization Administration Dates Next Due COVID-19 vaccine ([employer] 30mcg/0.3mL) ADRIÁN Coleman 02/16/2022 Family History Medical [...] Comments Blood Pressure 164/97 07/23/2024 1:50 PM [employer] did not take rx's last night Pulse 58 07/23/2024 1:50 PM [employer] Temperature 36.4 C (97.6 F) 07/23/2024 1:50 PM [employer] Respiratory Rate 14 03/19/2023 3:47 PM CDT Oxygen Saturation 97% 07/23/2024 1:5 0 PM [employer] Inhaled Oxygen Concentration - - Weight 108.5 kg (239 lb 4.8 oz) 07/23/2024 1:50 PM [employer] Height 186.4 cm (6' 1.39) 04/27/2024 8 :38 AM [employer] Body Mass Index 31.24 04/27/2024 8:38 AM [employer] Plan of Treatment Health Maintenance Due Date [...] SPINE CERVICAL WO Routine 08/03/2024 10:10 AM [employer] Spondylosis of cervical spine Neck ankylosis Facet [...] MR SPINE CERVICAL WO (08/03/2024 10:10 AM [employer]) Anatomical Region Laterality Modality Spine, CERVICAL SPINE Magnetic R esonance 08/03/2024 1:07 PM [employer] Impressions 08/03/2024 1:07 PM [employer] 1. Normal alignment. No fractures. 2. Mild [...] PM (Electronically Signed) Narrative 08/03/2024 1:07 PM [employer] For Patients: As a result of the [...] - 199 mg/dL 02/20/2024 6:25 PM CDT [facility] Comment: Cholesterol, Total Reference Ranges Desirable <200 mg/dL Borderline 200-239 mg/dL High >=240 mg/dL TRIGLYCERIDES 137 <150 mg/dL 02/20/2024 6:25 PM CDT [facility] HDL CHOLESTEROL 49 >40 mg/dL 6:25 PM CDT [facility] NON-HDL CHOLESTEROL 151(H) <145 mg/dl 02/20/2024 6:25 PM CDT [facility] CHOL/HDL RATIO 4.08 <4.50 02/20/2024 6:25 PM CDT [facility] LDL CHOLESTEROL 124 <=130 mg/dL 02/20/2024 6:25 PM CDT [facility] VLDL CHOLESTEROL 27 <=30 mg/dL 02/20/2024 6:25 PM CDT [facility] PROVIDER ORDERED STATUS RANDOM 02/20/2024 6:25 PM CDT [facility] Blood BLOOD SPECIMEN / Unknown Venipuncture / Unknown 02/20/2024 8:35 AM CDT 02/20/2024 8:35 AM CDT Keshav Ryder DO CHEMISTRY Final Result [facility] [address] [place] [address], [place] * COLONOSCOPY (03/19/2023 3:00 PM CDT) [...] adequate candidate for conscious sedation. The endoscope -[id number] was passed through the anus andadvanced to [...] 3:00 PM Procedure Code(s): --- Professional --- 60040, Colonoscopy, flexible; with biopsy, single or multiple Diagnosis Code(s): --- Professional --- D12.0, Benign neoplasm of cecum D12.8, Benign neoplasm of rectum Z86.010, Personal history of colonicpolyps CPT copyright 2021 [employer]. All rights reserved. The codes documented in this report are preliminary and upon billboard erector reviewmay be revised to meet current compliance requirements. Scope In: 3:17:24 PM Scope Withdrawal Time 0 hours 9 minutes 47 seconds Scope Out: 3:29:34 PM Angel Sin MD PROCEDURE ORD Final Res ult * LC HCV ANTIBODY RFX TO QUANT PCR (01/08/2023 11:00 AM CDT) Pathologist [facility] HCV Ab Non Reactive Non Reactive 01/11/2023 3:08 AM CDT [facility] ([facility]) Blood BLOOD SPECIMEN / Unknown Venipuncture / Unknown 01/08/2023 11:00 AM CDT 01/08/2023 11:02 AM CDT Narrative [facility] ([facility]) - 01/11/2023 3:08 AM CDT Performed at: [address] [place] [id number] Needle Molder: Calvin Erickson MD, Phone: [phone] Keshav Ryder DO LABORATORY Final Result [facility] ([facility]) [address] [place] [id number], * LC HIV-1/O/2, 4TH GENERATION (01/08/2023 11:00 AM CDT) Pathologist [facility] HIV Scr 4th Gen Non Reactive Non Reactive 01/11/2023 12:07 AM CDT [facility] ([facility]) Comment: HIV Negative HIV-1/HIV-2 antibodies and HIV-1 p24 antigen were NOT detected. There is no laboratory evidence of HIV infection. Blood BLOOD SPECIMEN / Unknown Venipuncture / Unknown 01/08/2023 11:00 AM CDT 01/08/2023 11:02 AM CDT Narrative [facility] ([facility]) - 01/11/2023 12:07 AM CDT Performed at: [address] - [address] [id number] Needle Molder: Calvin Erickson MD, Phone: [phone] us Keshav Ryder DO LABORATORY Final Result [facility] ([facility]) [address] [place] [address], from Last 3 Months or Most Recently Relevant to Health Maintenance Insurance [facility] Care Teams Instructor Adjunct Pharmacy Technician Relationship Specialty Start Date End Date Keshav [place]der [place] [address] PCP - General Family Practice 04/03/24
[2024-10-27 11:58] LABS: Basophils Percent Auto 0.3 % (0.0-3.0); Hemoglobin* 14.8 gm/dL (13.5-17.5); Immature Granulocytes Pct Auto 0.3 %; Lymphocytes Percent Auto 14.5 % (20-44); Mean Corpuscular HGB Conc 33 gm/dL (32-36); Mean Corpuscular Hemoglobin 31 pg (26-34); Mean Corpuscular Volume 93 fL (80-100); Monocytes Percent Auto 8.5 % (0.0-11.0); Neutrophils Percent Auto 75.4 % (42.0-72.0); Platelet Count* 201 K/uL (140-440); Red Blood Count 4.83 m/uL (4.30-5.90); White Blood Count* 11.75 K/uL (4.50-11.00)
[2024-10-27 12:00] LABS: Slide Review Reflex No
[2024-10-27 12:05] LABS: Troponin, Point-of-Care* 0.02 ng/ml (0.01-0.04)
[2024-10-27 12:09] LABS: Creatinine, Point-of-Care* 0.8 mg/dl (0.6-1.3)
[2024-10-27 12:19] LABS: Albumin* 4.6 g/dL (3.3-5.0); Chloride* 107 mmol/L (96-114); Potassium* 4.6 mmol/L (3.6-5.1); Sodium* 139 mmol/L (135-149)
[2024-10-27 12:22] LABS: Alanine Aminotransferase* 24 U/L (4-50); Alkaline Phosphatase* 60 U/L (40-150); Anion Gap 8 mEq/L (7-15); Aspartate Amino Transferase* 39 U/L (12-35); Bilirubin Total* 1.2 mg/dL (0.1-1.5); Blood Urea Nitrogen* 19 mg/dL (7-30); Calcium* 9.4 mg/dL (8.4-10.6); Carbon Dioxide* 24 mmol/L (20-32); Creatinine* 0.8 mg/dL (0.5-1.5); Est. Creatinine Clearance* 114.17; Estimated Glomerular Filt Rate 101 ml/min; Glucose* 99 mg/dL (60-115); Total Protein* 7.5 g/dL (6.0-8.3)
[2024-10-27] MEDS: KETOROLAC 15 MG/ML inj IVP (13:58)
== END 2024-10-27 14:19 | disposition home or self-care (01) ==
PROVIDERS: Emergency Provider Student in an Organized Health Care Education/Training Program; PCP Family Medicine
DX: S20.211A Contusion of right front wall of thorax, initial encounter (principal); V43.52XA Car driver injured in collision with other type car in traffic accident, initial encounter; R00.1 Bradycardia, unspecified; D18.09 Hemangioma of other sites
CPT/HCPCS: 36415; 70450; 71046; 71260; 72125; 74177; 80053; 82565; 84484; 85025; 93005; 96374; 96375; 99284; 99285; J1885; J2270; Q9967